=== PATIENT | female | born 1945 | race Caucasian/White ===

== ENCOUNTER → 2016-08-25 | Outpatient (CLI) | payer MEDICARE ==
[~2016-08-25] MED LIST: ADULT LOW DOSE81 MG PO; ANASTROZOLE1 MG PO; BISOPROLOL 5MG T5 MG PO; CIPRO 500MG TA500 MG PO; FEMARA2.5 MG PO; FLAGYL 500MG.500 MG PO; HYDROCODONE-APA1 TA2 PO; IBRANCE125 MG PO; PREDNISONE 20MG20 MG PO; VICODIN 5/500 T1 TAB PO
[2016-08-25 09:24] LABS: HEMOGLOBIN 11.7 g/dL (12.2-16.2); LYMPH # 1.5 K/mm3 (0.7-4.5); LYMPH % 48.8 % (10-50.0)
== END ==
LOC: LAB 08:56
PROVIDERS: Nurse Practitioner
DX: C50.911 Malignant neoplasm of unspecified site of right female breast (principal)

== ENCOUNTER → 2017-01-29 | Outpatient (CLI) | payer MEDICARE ==
[2017-01-29 08:19] LABS: HEMOGLOBIN 12.3 g/dL (12.2-16.2); LYMPH # 1.4 K/mm3 (0.7-4.5)
== END ==
LOC: LAB 08:03
PROVIDERS: Internal Medicine
DX: C50.911 Malignant neoplasm of unspecified site of right female breast (principal)

== ENCOUNTER → 2017-04-27 | Outpatient (CLI) | payer MEDICARE ==
[2017-04-27 10:35] LABS: HEMOGLOBIN 11.5 g/dL (12.2-16.2); LYMPH # 1.1 K/mm3 (0.7-4.5); LYMPH % 38.2 % (10-50.0)
[2017-04-27 12:15] LABS: BUN 17 mg/dL (7-18)
--- NOTE | 2017-04-27 12:23 | RADIOLOGY REPORT PS360 ---
BONE DENSITOMETRY(HIP:LT SPINE HISTORY: BREAST CA,POST MENOPAUSAL ORDERING PHYSICIAN: Marco Barreto MD PATIENT AGE: 72 years COMPARISON: None FINDINGS: The BMD measured at the right femoral neck is 0.706 g/cm squared with a T score of -2.4. This is considered Osteopenic according to the World Health Organization criteria. Fracture risk is Moderate. Treatment is advised. Incidental note is made of a moderate lumbar scoliosis convex left.. IMPRESSION: Osteopenia. Recommend follow-up exam April 2019
[2017-04-27 12:24] LABS: GFR (ESTIMATED) 55 ML/MIN (59-)
[2017-04-27 13:38] LABS: NEUTROPHILS 34 % (42-76)
== END ==
LOC: RAD 09:37
PROVIDERS: Internal Medicine
DX: Z78.0 Asymptomatic menopausal state (principal); Z13.820 Encounter for screening for osteoporosis; C50.911 Malignant neoplasm of unspecified site of right female breast

== ENCOUNTER → 2017-05-04 | Outpatient (CLI) | payer MEDICARE ==
[2017-05-04 08:47] LABS: HEMOGLOBIN 11.1 g/dL (12.2-16.2); LYMPH # 1.2 K/mm3 (0.7-4.5); LYMPH % 33.3 % (10-50.0)
== END ==
LOC: LAB 08:19
PROVIDERS: Internal Medicine
DX: C50.911 Malignant neoplasm of unspecified site of right female breast (principal)

== ENCOUNTER 2017-05-18 08:49 | Outpatient (CLI) | payer MEDICARE ==
[2017-05-18 09:30] VITALS: BP 128/69
[2017-05-18 10:00] VITALS: BP 126/68
== END 2017-05-18 10:00 | disposition home or self-care (01) ==
LOC: COP 08:49
DX: C50.911 Malignant neoplasm of unspecified site of right female breast (principal)
CPT/HCPCS: J3489